=== PATIENT | female | born 1975 | race African-American/Black ===

== ENCOUNTER 2025-04-27 06:09 | Day surgery (SDC) | payer OTHER ==
[2025-04-27] MEDS ORDERED: LIDOCAINE HCL/PF 1% SDV 5ML VIAL ONE ×2 (07:14→07:22)
[2025-04-27] MEDS ORDERED: LIDOCAINE HCL/PF 2% SDV 5ML VIAL ONE (07:22)
[2025-04-27] MEDS: LIDOCAINE HCL 1% PRESERVATIVE FREE - 30ML VIAL IJ ONE ×3 (08:27→08:30)
[2025-04-27] MEDS: IOHEXOL 180 MG/1 ML ML IJ ONE ×3 (08:30→08:32)
[2025-04-27] MEDS: DEXAMETHASONE SOD PHOSPHATE 10 MG/1 ML VIAL IM ONE ×3 (08:31→08:35)
[2025-04-27] MEDS ORDERED: ACETAMINOPHEN 500 MG TABLET (FP) PO PRN (09:10)
[2025-04-27 13:50] VITALS: BP 128/73; PULSE 58; RESP 20; TEMP 97.4
== END 2025-04-27 09:10 | disposition home or self-care (01) ==
LOC: JASU-SURG 06:09
PROVIDERS: ATTEND Pain Medicine Pain Medicine
PROC: 3E0R3BZ Introduction of Anesthetic Agent into Spinal Canal, Percutaneous Approach (ICD-10-PCS; 2025-04-27)
PROC: 3E0R33Z Introduction of Anti-inflammatory into Spinal Canal, Percutaneous Approach (ICD-10-PCS; principal; 2025-04-27 08:00)
DX: M54.12 Radiculopathy, cervical region (principal)
CPT/HCPCS: 76000-TC-FY; J1100